=== PATIENT | male | born 1945 | race Caucasian/White ===

== ENCOUNTER 2017-06-27 16:49 | Emergency (ER) | payer MEDICARE, OTHER ==
[~2017-06-27] VITALS: Ht 188 cm; Wt 72.6 kg
[~2017-06-27 16:49] MED LIST: ACET325 PO; AMOX875 PO; ASPI81CH PO; COPAXONE40 MG/1 ML SC; DIAZ5 PO; SACC250C PO; SENN187 PO; SIMV10 PO; TAMS.4ER PO
[2017-06-27] MEDS ORDERED: OCREVUS300 MG/10 IV (17:02)
[2017-06-27] MEDS ORDERED: Guaifenesin-Co118 ML PO (19:24)
[2017-06-27 19:25] LABS: Calcium, Ionized (POC) 1.06 mmol/L (1.10-1.46); Chloride (POC) 98 mmol/L (98-108); Creatinine (POC) 0.7 mg/dL (0.8-1.3); Glucose (ISTAT POC) 110 mg/dL (70-99); Hemoglobin (POC) 13.6 g/dL (13.5-17.5); Potassium (POC) 3.8 mmol/L (3.5-5.5); Sodium (POC) 140 mmol/L (135-148); Total CO2 (POC) 27 mmol/L (21-32)
== END 2017-06-27 20:14 | disposition home or self-care (01) ==
LOC: ER 16:49
PROVIDERS: Emergency Medicine
DX: J20.9 Acute bronchitis, unspecified (principal); Z79.899 Other long term (current) drug therapy; Z79.82 Long term (current) use of aspirin; Z87.01 Personal history of pneumonia (recurrent)
CPT/HCPCS: 36415; 71046; 80047; 85014; 96360; 96361; 99283; J7030

== ENCOUNTER 2018-07-27 12:46 | Observation (INO) | payer MEDICARE, OTHER ==
[~2018-07-27] VITALS: Ht 188 cm; Wt 66.4 kg
[~2018-07-27 12:46] MED LIST changes: +Guaifenesin-Co118 ML PO; +OCREVUS300 MG/10 IV
[2018-07-27 13:33] LABS: BASOPHILS ABSOLUTE AUTO 0.04 K/mm3 (0.00-0.23); BASOPHILS PERCENT AUTO 0 % (0-2); EOSINOPHILS ABSOLUTE AUTO 0.01 K/mm3 (0.00-0.68); EOSINOPHILS PERCENT AUTO 0 % (0-6); Hematocrit 44.1 % (37.0-53.0); Hemoglobin 14.6 g/dL (13.5-17.5); IMMATURE GRAN ABSOLUTE AUTO 0.04 K/mm3 (0.00-0.10); IMMATURE GRAN PERCENT AUTO 0 % (0-1); LYMPHOCYTES ABSOLUTE AUTO 0.48 K/mm3 (0.84-5.20); LYMPHOCYTES PERCENT AUTO 4 % (21-46); MONOCYTES ABSOLUTE AUTO 0.54 K/mm3 (0.16-1.47); MONOCYTES PERCENT AUTO 4 % (4-13); Mean Corpuscular HGB 30.6 pg (26.0-34.0); Mean Corpuscular HGB Conc 33.1 g/dL (31.5-36.5); Mean Corpuscular Volume 93 fL (80-100); Mean Platelet Volume 10.5 fL (9.1-12.4); NEUTROPHILS ABSOLUTE AUTO 11.57 K/mm3 (1.96-9.15); NEUTROPHILS PERCENT AUTO 91 % (41-73); Platelet Count 234 K/mm3 (150-400); RDW Coefficient Variation 12.5 % (11.7-14.2); RDW Standard Deviation 42.5 fL (35.1-46.3); Red Blood Cell Count 4.77 M/mm3 (4.30-5.90); White Blood Cell Count 12.68 K/mm3 (4.00-11.30)
[2018-07-27 13:47] LABS: Alanine Aminotransfer (ALT/SGP 25 U/L (12-78); Albumin, Blood 3.5 g/dL (3.4-5.0); Albumin/Globulin Ratio 1.1 (0.8-1.8); Alk Phos 82 U/L (50-136); Anion Gap 5 mmol/L (6-16); Aspartate Aminotrans (AST/SGOT 27 U/L (12-37); Bilirubin, Total 0.9 mg/dL (0.1-1.0); Blood Urea Nitrogen 20 mg/dL (8-24); Bun/Creatinine Ratio 28.5 (12.0-20.0); CO2, Blood 29 mmol/L (21-32); Calcium, Blood 8.5 mg/dL (8.5-10.1); Chloride, Blood 107 mmol/L (98-108); Globulin, Blood 3.2 g/dL (2.2-4.0); Glomerular Filtration Rate >60 (60-); Glucose, Blood 124 mg/dL (70-99); Potassium, Blood 4.5 mmol/L (3.5-5.5); Sodium, Blood 141 mmol/L (136-145); Total Protein, Blood 6.7 g/dL (6.4-8.2)
[2018-07-27] MEDS ORDERED: COPAXONE40 MG/1 ML SC (15:58)
[2018-07-27] MEDS ORDERED: PROBIOTIC1 EAC6 PO (16:09)
[2018-07-27] MEDS ORDERED: HYFIBER WI12 GM/30 M PO (16:11)
--- NOTE | 2018-07-27 16:56 | NUR ---
ADMIT NOTE- PT ADMITTED THROUGH THE ED, PT ARRIVED ON MEDICAL UNIT WEARING THREE DEPENDS. RIGHT INNER HEEL HAS A CALLUSSED SPOT, PT STATES IT IS D/T THE WAY HIS FOOT LAYS NORMALLY. MILD BLANCHABLE REDNESS NOTED ON THE COCCYX AND REDNESS IN RIGHT INNER THIGH LIKELY R/T THREE PAIRS OF DEPENDS. PT CHANGED AND GIVEN A BED BATH UPON ARRIVAL, URINE WAS DARK BROWN AND VERY ODOROUS, PT MAY NEED A UA. WILL SPEAK WITH DR LAGUNA ABOUT IT.
--- NOTE | 2018-07-27 17:47 | NUR ---
ATTEMPTED TO CALL [facility] TO REQUEST A LIST OF ACTIVE MEDICATIONS NO ANSWER.
--- NOTE | 2018-07-27 19:23 | NUR ---
SHIFT SUMMARY- DR LAGUNA CAME TO SEE THE PT USED EMR TO DETERMINE PT HOME MEDS PT STATED AFTER MED REC WAS COMPLETED HE DOES NOT TAKE LISINOPRIL. ADMIT COMPLETE
[2018-07-27 22:19] LABS: Source, Urine Clean Catch
[2018-07-27 22:22] LABS: Bilirubin, Urine Neg (Neg); Blood, Urine 1+ (Neg); Glucose Qualitative, Urine Neg (Neg); Ketones, Urine 3+ (Neg); Leukocyte Esterase, Urine 2+ (Neg); Nitrite, Urine Pos (Neg); Protein, Urine 1+ (Neg); Specific Gravity, Urine 1.015 (1.003-1.022); Urobilinogen, Urine 1+ (Normal)
[2018-07-27 22:30] LABS: Appearance, Urine Cloudy (Clear); Color, Urine Yellow (P-Yellow)
[2018-07-27 22:31] LABS: Bacteria Many /hpf; Red Blood Cells, Urine 0-2 /hpf (0-2); Squamous Epithelial Cells Few /hpf (Few); White Blood Cells, Urine 25-50 /hpf (0-5)
[2018-07-28 04:45] LABS: BASOPHILS ABSOLUTE AUTO 0.02 K/mm3 (0.00-0.23); BASOPHILS PERCENT AUTO 0 % (0-2); EOSINOPHILS PERCENT AUTO 0 % (0-6); Hemoglobin 13.1 g/dL (13.5-17.5); IMMATURE GRAN ABSOLUTE AUTO 0.04 K/mm3 (0.00-0.10); IMMATURE GRAN PERCENT AUTO 1 % (0-1); LYMPHOCYTES ABSOLUTE AUTO 0.34 K/mm3 (0.84-5.20); LYMPHOCYTES PERCENT AUTO 4 % (21-46); MONOCYTES ABSOLUTE AUTO 0.05 K/mm3 (0.16-1.47); MONOCYTES PERCENT AUTO 1 % (4-13); Mean Corpuscular HGB 30.3 pg (26.0-34.0); Mean Corpuscular HGB Conc 32.8 g/dL (31.5-36.5); Mean Corpuscular Volume 92 fL (80-100); Mean Platelet Volume 10.1 fL (9.1-12.4); NEUTROPHILS ABSOLUTE AUTO 8.32 K/mm3 (1.96-9.15); NEUTROPHILS PERCENT AUTO 95 % (41-73); Platelet Count 226 K/mm3 (150-400); RDW Coefficient Variation 12.2 % (11.7-14.2); RDW Standard Deviation 41.9 fL (35.1-46.3); Red Blood Cell Count 4.33 M/mm3 (4.30-5.90); White Blood Cell Count 8.77 K/mm3 (4.00-11.30)
--- NOTE | 2018-07-28 07:01 | NUR ---
SHIFT SUMMARY PT A/O NO C/O PAIN. INCONT OF URINE. C/O COUGH AND GOT ORDER FOR ROBITUSSIN FROM DR TORRES. HE WAS ABLE TO SLEEP T/O NIGHT. CALL LIGHT IN REACH.
--- NOTE | 2018-07-28 17:34 | NUR ---
ASSUMED CARE OF PT- RECIEVED REPORT FROM NIGHT RN MORE, ASSUMED CARE OF PT WITH RN EBENEZER ISIDRO. PT AGREEABLE TO HER CARE.
--- NOTE | 2018-07-28 19:13 | NUR ---
SHIFT SUMMARY NO ACUTE CHANGES IN PATIENT THIS SHIFT. PATIENT IS EXPECTED TO BE DISHARGED HOME TOMORROW. BED LEFT IN LOCKED AND LOW POSITION AND CALL LIGHT WITHIN REACH.
--- NOTE | 2018-07-29 06:37 | NUR ---
SHIFT SUMMARY PT A/O. INCONT OF URINE. HE WAS ABLE TO SLEEP T/O NIGHT. NO C/O PAIN. CALL LIGHT IN REACH.
--- NOTE | 2018-07-29 13:33 | NUR ---
Per admit trigger, I met with Mr. Brambila to offer prayer and spiritual support. He was very open to companionship and prayer. He spoke at length about his love for his and his concern for her health. He admits it may be time for them to consider selling their home as it has become a burden to manage. He became tearful at times, but expressed a job gopal. I provided theraputic listening, gentle spiritual direction, and prayer to good effect. I will remain available.
[2018-07-29] MEDS ORDERED: AZIT250 PO (15:28)
--- NOTE | 2018-07-29 15:53 | NUR ---
D/C INSTRUCTIONS PROVIDED AND EXPLAINED TO PT. IV REMOVED. PT D/C VIA STRETCHER WITH [facility] AT [id number].
== END 2018-07-29 15:55 | disposition home health service (06) ==
LOC: ER 12:46 → MEDS 12:47
PROVIDERS: Emergency Medicine; ADMIT Internal Medicine
DX: G35 Multiple sclerosis (principal); N39.0 Urinary tract infection, site not specified; D72.829 Elevated white blood cell count, unspecified; G82.20 Paraplegia, unspecified; J45.909 Unspecified asthma, uncomplicated; F41.9 Anxiety disorder, unspecified; N40.0 Benign prostatic hyperplasia without lower urinary tract symptoms; E78.5 Hyperlipidemia, unspecified; Z79.899 Other long term (current) drug therapy
CPT/HCPCS: 36415; 71046; 80053; 81001; 85025; 87086; 96360; 96361; 96365; 96366; 96372; 96375; 96376; 97161; 97165; 97530; 99284-25; A9270-GY; G0378; J0696; J1650; J2930; J7030; J7050

== ENCOUNTER 2018-08-04 14:01 | Inpatient (IN) | payer MEDICARE, OTHER ==
[~2018-08-04] VITALS: Ht 188 cm; Wt 70.3 kg
[~2018-08-04 14:01] MED LIST changes: +AZIT250 PO; +HYFIBER WI12 GM/30 M PO; +PROBIOTIC1 EAC6 PO
[2018-08-04 14:45] LABS: BASOPHILS ABSOLUTE AUTO 0.03 K/mm3 (0.00-0.23); BASOPHILS PERCENT AUTO 0 % (0-2); EOSINOPHILS ABSOLUTE AUTO 0.04 K/mm3 (0.00-0.68); EOSINOPHILS PERCENT AUTO 0 % (0-6); Hematocrit 45.3 % (37.0-53.0); Hemoglobin 14.6 g/dL (13.5-17.5); IMMATURE GRAN ABSOLUTE AUTO 0.17 K/mm3 (0.00-0.10); IMMATURE GRAN PERCENT AUTO 1 % (0-1); LYMPHOCYTES PERCENT AUTO 5 % (21-46); MONOCYTES ABSOLUTE AUTO 1.05 K/mm3 (0.16-1.47); MONOCYTES PERCENT AUTO 8 % (4-13); Mean Corpuscular HGB 29.9 pg (26.0-34.0); Mean Corpuscular HGB Conc 32.2 g/dL (31.5-36.5); Mean Corpuscular Volume 93 fL (80-100); Mean Platelet Volume 9.8 fL (9.1-12.4); NEUTROPHILS ABSOLUTE AUTO 10.69 K/mm3 (1.96-9.15); NEUTROPHILS PERCENT AUTO 85 % (41-73); Platelet Count 254 K/mm3 (150-400); RDW Coefficient Variation 12.7 % (11.7-14.2); RDW Standard Deviation 43.4 fL (35.1-46.3); Red Blood Cell Count 4.88 M/mm3 (4.30-5.90); White Blood Cell Count 12.58 K/mm3 (4.00-11.30)
[2018-08-04 15:06] LABS: Alanine Aminotransfer (ALT/SGP 24 U/L (12-78); Albumin, Blood 3.2 g/dL (3.4-5.0); Albumin/Globulin Ratio 0.9 (0.8-1.8); Alk Phos 77 U/L (50-136); Anion Gap 6 mmol/L (6-16); Aspartate Aminotrans (AST/SGOT 16 U/L (12-37); Bilirubin, Total 0.8 mg/dL (0.1-1.0); Blood Urea Nitrogen 16 mg/dL (8-24); Bun/Creatinine Ratio 21.1 (12.0-20.0); CO2, Blood 30 mmol/L (21-32); Calcium, Blood 8.6 mg/dL (8.5-10.1); Chloride, Blood 101 mmol/L (98-108); Creatinine, Blood 0.76 mg/dL (0.60-1.20); Globulin, Blood 3.5 g/dL (2.2-4.0); Glomerular Filtration Rate >60 (60-); Glucose, Blood 91 mg/dL (70-99); Potassium, Blood 4.4 mmol/L (3.5-5.5); Sodium, Blood 137 mmol/L (136-145); Total Protein, Blood 6.7 g/dL (6.4-8.2); Troponin I <0.015 ng/mL (0.000-0.040)
--- NOTE | 2018-08-04 18:33 | NUR ---
ADMISSION NOTE PT ARRIVED TO MEDICAL FLOOR VIA BED. PTS ATTENDS AND BED WERE SOAKED WITH FOUL URINE. PT CLEANED UP AND VS MEASURED. PT TEMP IS 100.3 AT THIS TIME. PT ORIENTED TO ROOM AND ASSESSMENT COMPLETED. PT AXO, PLEASANT AND COOPERATIVE WITH CARE. DINNER TRAY ORDER, PT STATES THAT HE DOES BEST WITH MECH SOFT DIET. BED IN LOW POSITION, CALL LIGHT WITHIN REACH. PT HAS A BLANCHABLE REDDEND AREA ON COCCYX WITH A SMALL WOUND INSIDE INSIDE THE GLUTEAL CLEFT.
[2018-08-04 22:01] LABS: Adenovirus Not Detected (NOT DETECT); Bordetella pertussis Not Detected (NOT DETECT); Chlamydophila pneumoniae Not Detected (NOT DETECT); Coronavirus 229E Not Detected (NOT DETECT); Coronavirus HKU1 Not Detected (NOT DETECT); Coronavirus NL63 Not Detected (NOT DETECT); Coronavirus OC43 Not Detected (NOT DETECT); Human Metapneumovirus Not Detected (NOT DETECT); Human Rhinovirus/Enterovirus Detected (NOT DETECT); Influenza A Not Detected (NOT DETECT); Influenza A/2009-H1 Not Detected (NOT DETECT); Influenza A/H1 Not Detected (NOT DETECT); Influenza A/H3 Not Detected (NOT DETECT); Influenza B Not Detected (NOT DETECT); Mycoplasma pneumoniae Not Detected (NOT DETECT); Parainfluenza Virus 1 Not Detected (NOT DETECT); Parainfluenza Virus 2 Not Detected (NOT DETECT); Parainfluenza Virus 3 Not Detected (NOT DETECT); Parainfluenza Virus 4 Not Detected (NOT DETECT); Respiratory Syncytial Virus Not Detected (NOT DETECT)
[2018-08-05 00:15] LABS: Source, Urine Clean Catch
[2018-08-05 00:20] LABS: Bilirubin, Urine Neg (Neg); Blood, Urine Neg (Neg); Glucose Qualitative, Urine 4+ (Neg); Ketones, Urine 3+ (Neg); Leukocyte Esterase, Urine Neg (Neg); Nitrite, Urine Neg (Neg); Protein, Urine 1+ (Neg); Specific Gravity, Urine 1.015 (1.003-1.022); Urobilinogen, Urine NORM (Normal)
[2018-08-05 00:27] LABS: Appearance, Urine Clear (Clear); Color, Urine Yellow (P-Yellow)
--- NOTE | 2018-08-05 06:07 | NUR ---
SHIFT SUMMARY PATIENT IS ALERT AND ORIENTED. USES CALL LIGHT APPROPRIATELY. PATIENT REMAINED IN BED DURING SHIFT. WAS INCONTINENT THROUGHOUT THE NIGHT. CONDOM CATH WAS USED TO OBTAIN URINE SAMPLE. PATIENT TURNED THROUGHOUT THE NIGHT. MEPLIX DRESSING C/D/I ON COCCYX. PATIENT ON ROOM AIR. HAS A VERY MOIST WEAK COUGH. PATIENT STATES HE IS WORKING ON COUGHING DEEPER TO TRY AND COUGH IT UP. LEFT LEG IS MORE SWOLLEN COMPARED TO RIGHT. VITALS STABLE. NO ACUTE CHANGES DURING SHIFT. PT SLEPT WELL
--- NOTE | 2018-08-05 12:08 | NUR ---
Patient is lying in bed and alert. Patient openly shares about his current health issues, about his [employer] background ([employer]), and about his family ( Kajal, and 4 daughters and their families). Patient expresses the need for direction concerning "God's will" for his and how to manage his M.S. and her Parkinson's I listen empathically, provide companionship, pastoral drug abuse counselor and prayer. Patient responds well and shows signs of an elevated mood.
--- NOTE | 2018-08-05 19:07 | NUR ---
SHIFT SUMMARY: NO ACUTE CHANGES TO REPORT THIS SHIFT. PT A&O; CALM AND COOPERATIVE WITH CARE. NO C/O PAIN OR NAUSEA THIS SHIFT. PT HX MS; WHEELCHAIR BOUND AT BASELINE; PT UP c 2-MAX ASSIST; PT UP TO CHAIR T/O SHIFT. SWALLOWING DIFFICULTIES; PO MEDS IN APPLESAUCE. SOLU-MEDROL & RESPIRATORY TREATMENTS CONTINUING. REPORT GIVEN TO ONCOMING RN.
--- NOTE | 2018-08-06 05:58 | NUR ---
SHIFT SUMMARY PATIENT IS ALERT AND ORIENTED. REMAINED IN BED THROUGHOUT THE NIGHT. PATIENT SLEPT WELL THROUGHOUT THE NIGHT. NO NEW CHANGES. VITALS STABLE. PT USE CALL LIGHT APPROPRIATELY.
--- NOTE | 2018-08-06 17:38 | NUR ---
SHIFT SUMMARY NO ACUTE CHANGES IN PT CONDITION THIS SHIFT. PATIENT HAS WORKED WITH OT TODAY AND HAS BEEN UP IN CHAIR AND THEN RETURNED TO BED. PT IS Q2 TURNS. CURRENTLY NO DISCHARGE PLANS. BED WAS LEFT IN LOW AND LOCKED POSITION AND CALL LIGHT WITHIN REACH. WILL CONTINUE TO MONITOR.
--- NOTE | 2018-08-07 05:49 | NUR ---
SHIFT SUMMARY PT A/O. INCONT OF URINE AND Q2HR TURNS REPOSITIONS. LEGS ELEVATED ON PILLOWS TO KEEP HEELS OFF BED. C/O OCCASIONAL WEAK NONPRODUCTIVE COUGH AND MEDICATED PER EMAR. NO S/S OF RESPIRATORY DISTRESS. HE IS ON ROOM AIR. HE WAS ABLE TO SLEEP T/O NIGHT. CALL LIGHT IN REACH.
--- NOTE | 2018-08-07 15:51 | NUR ---
SHIFT SUMMARY PATIENT WORKED WITH THERAPIES TODAY. AWAITING SNF PLACEMENT. BEDBATH GIVEN. SKIN C/D/I MEPILEX ON COCCYX FOR REDNESS.
--- NOTE | 2018-08-08 05:32 | NUR ---
SHIFT SUMMARY PATIENT IS ALERT AND ORIENTED. PATIENT REQUESTED TO HAVE COUGH MEDICINE AND ASKED IF HE COULD HAVE A NASAL SPRAY. RECIEVED NEW ORDER FOR NASAL DECONGESTION SPRAY AND FLUTTER VALVE. PATIENT HAS BEEN ASLEEP AND NOT RECIEVED A DOSE OF NASAL SPRAY. PATIENT IS INCONTINENT AND HAS BEEN CHANGED/REPOSITIONED THROUGHOUT THE NIGHT. MEPLIX IS C/D/I ON COCCYX. VITALS STABLE. NO NEW CHANGES THROUGHOUT THE NIGHT. PLAN IS FOR PT TO DISCHARGE TO PSYCHIATRIC TODAY. RESPIRATIONS EQUAL AND UNLABORED ON ROOM AIR
[2018-08-08 13:35] LABS: Adenovirus Not Detected (NOT DETECT); Bordetella pertussis Not Detected (NOT DETECT); Chlamydophila pneumoniae Not Detected (NOT DETECT); Coronavirus 229E Not Detected (NOT DETECT); Coronavirus HKU1 Not Detected (NOT DETECT); Coronavirus NL63 Not Detected (NOT DETECT); Coronavirus OC43 Not Detected (NOT DETECT); Human Metapneumovirus Not Detected (NOT DETECT); Human Rhinovirus/Enterovirus Detected (NOT DETECT); Influenza A Not Detected (NOT DETECT); Influenza A/2009-H1 Not Detected (NOT DETECT); Influenza A/H1 Not Detected (NOT DETECT); Influenza A/H3 Not Detected (NOT DETECT); Influenza B Not Detected (NOT DETECT); Mycoplasma pneumoniae Not Detected (NOT DETECT); Parainfluenza Virus 1 Not Detected (NOT DETECT); Parainfluenza Virus 2 Not Detected (NOT DETECT); Parainfluenza Virus 3 Not Detected (NOT DETECT); Parainfluenza Virus 4 Not Detected (NOT DETECT); Respiratory Syncytial Virus Not Detected (NOT DETECT)
--- NOTE | 2018-08-08 18:08 | NUR ---
[facility] initial visit: Mr. Brambila has a gentle demeanor and gracious attitude. He is soft-spoken and articulate. He has a srtong marriage of 50+ years and adult children who are loving and supportive. Hhis primary concern is about his . She has advancing Parkinsons. It has become difficult for them to care for one another as they are both requiring more ADL assistance. He is ready to move to assisted living. She is not. He expressed deep love for his and children and was grateful for spiritual support/prayer. We did not discuss his wishes/code status/wishes. Strategic Account Manager services will remain available.
--- NOTE | 2018-08-08 18:22 | NUR ---
SUMMARY PT SITTING UP IN BED EATING DINNER, PT HAS BEEN UP IN THE CHAIR FOR MOST OF THE DAY, PT IS PLEASANT AND COOPERATIVE WITH CARE, IS A 2PERSON TRANSFER, PT ABLE TO FEED HIMSELF AND TAKE PILLS WHOLE WITH WATER, PLAN IS TO DC TO SNF IN THE NEXT DAY OR 2, WILL CONT TO MONITOR
--- NOTE | 2018-08-09 05:56 | NUR ---
SHIFT SUMMARY PATIENT IS ALERT AND ORIENTED. PATIENT REQUESTED COUGH MEDICINE AND NASAL SPRAY BEFORE BED. PATIENT SLEPT WELL THROUGHOUT THE NIGHT. PATIENT RECIEVED HOME MEDICATION COPAXONE FOR MS ORDERED. NO ACUTE CHANGES THROUGHOUT THE NIGHT. VITALS STABLE
--- NOTE | 2018-08-09 15:24 | NUR ---
PICC ORDER SPOKE WITH DR MILES ABOUT PICC ORDER. PT NEEDS 1 WEEK OUTPT ABX- OKAY TO PLACE POWERGLIDE
--- NOTE | 2018-08-09 16:55 | NUR ---
SHIFT SUMMARY THE PATIENT PRESENTED THIS MORNING A&O X4, WITH VITALS WNL AND DIMINISHED LUNG SOUNDS. THE PATIENT HAS BEEN RESTING IN BED MOST OF THE SHIFT AND REQUESTED TO GET UP TO HIS WHEEL CHAIR AROUND 1445. THE PATIENT HAD A POWER GLIDE PLACED AND THEN WAS ABOUT TO GET UP TO HIS CHAIR. THE PATIENT IS WAITING IN HIS ROOM FOR HIS FAMILY TO ARRIVE. WILL CONTINUE TO MONITOR.
[2018-08-10 05:32] LABS: BASOPHILS ABSOLUTE AUTO 0.09 K/mm3 (0.00-0.23); BASOPHILS PERCENT AUTO 1 % (0-2); EOSINOPHILS ABSOLUTE AUTO 0.09 K/mm3 (0.00-0.68); EOSINOPHILS PERCENT AUTO 1 % (0-6); Hematocrit 39.1 % (37.0-53.0); Hemoglobin 12.7 g/dL (13.5-17.5); IMMATURE GRAN ABSOLUTE AUTO 0.65 K/mm3 (0.00-0.10); IMMATURE GRAN PERCENT AUTO 5 % (0-1); LYMPHOCYTES ABSOLUTE AUTO 0.82 K/mm3 (0.84-5.20); LYMPHOCYTES PERCENT AUTO 6 % (21-46); MONOCYTES ABSOLUTE AUTO 0.81 K/mm3 (0.16-1.47); MONOCYTES PERCENT AUTO 6 % (4-13); Mean Corpuscular HGB 29.9 pg (26.0-34.0); Mean Corpuscular HGB Conc 32.5 g/dL (31.5-36.5); Mean Corpuscular Volume 92 fL (80-100); NEUTROPHILS ABSOLUTE AUTO 10.58 K/mm3 (1.96-9.15); NEUTROPHILS PERCENT AUTO 81 % (41-73); Platelet Count 251 K/mm3 (150-400); RDW Coefficient Variation 13.1 % (11.7-14.2); RDW Standard Deviation 43.9 fL (35.1-46.3); Red Blood Cell Count 4.25 M/mm3 (4.30-5.90); White Blood Cell Count 13.04 K/mm3 (4.00-11.30)
[2018-08-10 05:54] LABS: Magnesium, Blood 2.5 mg/dL (1.6-2.4)
[2018-08-10 05:55] LABS: Alanine Aminotransfer (ALT/SGP 59 U/L (12-78); Albumin, Blood 2.3 g/dL (3.4-5.0); Albumin/Globulin Ratio 0.8 (0.8-1.8); Alk Phos 75 U/L (50-136); Anion Gap 5 mmol/L (6-16); Aspartate Aminotrans (AST/SGOT 30 U/L (12-37); Bilirubin, Total 0.5 mg/dL (0.1-1.0); Blood Urea Nitrogen 20 mg/dL (8-24); Bun/Creatinine Ratio 21.6 (12.0-20.0); CO2, Blood 34 mmol/L (21-32); Calcium, Blood 8.2 mg/dL (8.5-10.1); Chloride, Blood 102 mmol/L (98-108); Creatinine, Blood 0.93 mg/dL (0.60-1.20); Globulin, Blood 2.9 g/dL (2.2-4.0); Glomerular Filtration Rate >60 (60-); Glucose, Blood 89 mg/dL (70-99); Phosphorus, Blood 4.3 mg/dL (2.5-4.9); Potassium, Blood 4.2 mmol/L (3.5-5.5); Sodium, Blood 141 mmol/L (136-145); Total Protein, Blood 5.2 g/dL (6.4-8.2)
--- NOTE | 2018-08-10 06:00 | NUR ---
73 year old Male with MS admitted with resp distress and he continues on IV antibiotics to treat resp infection. He is wc bound baseline unable to ambulate x many years. Up with 2 extensive assist to bedside chair. Able to feed self, tolerated mech soft diet with ground meat. PT has pressure area onf nonblanching skin sacral area. Photo in chart. Pt incont of large amts of urine, wears attends. Unable to reposition self in bed. On room air lung sounds diminished sounds bilat. Had powerglide placed yesterday to continue IV abx at SNF. Jw blood from powerglide this AM, IV positional. Denies pain or acute distress, needs crushable meds crushed and given in chocolate pudding. slow difficult swallow. Has and DTR who are supportive and support SNF on DC.
[2018-08-10] MEDS ORDERED: ALBU2.5V5 NEB (13:04)
[2018-08-10] MEDS ORDERED: ACET325 PO (13:04)
[2018-08-10] MEDS ORDERED: BENZ100A PO (13:05)
[2018-08-10] MEDS ORDERED: ROBITUSSIN COU237 ML PO (13:11)
[2018-08-10] MEDS ORDERED: ENOX40I SC (13:12)
[2018-08-10] MEDS ORDERED: Florastor250 MG PO (13:12)
[2018-08-10] MEDS ORDERED: PIPERACIL-TAZO4.5 G1 IV (13:14)
[2018-08-10] MEDS ORDERED: ALBU3IS INH (13:15)
--- NOTE | 2018-08-10 14:15 | NUR ---
REPORT CALLED TO RN AT [facility]. PT. DISCHARGED TO [facility] VIA [facility]. FAMILY NITIFIED OF DISCHARGE.
== END 2018-08-10 14:28 | DRG 58 ==
LOC: ER 14:01 → MEDS 16:13
PROVIDERS: Emergency Medicine; Hospitalist; Internal Medicine; ADMIT Internal Medicine Gastroenterology
PROC: 02HV33Z Insertion of Infusion Device into Superior Vena Cava, Percutaneous Approach (ICD-10-PCS; principal; 2018-08-09)
DX: G35 Multiple sclerosis (principal); J18.9 Pneumonia, unspecified organism; A41.9 Sepsis, unspecified organism; E78.5 Hyperlipidemia, unspecified; L89.151 Pressure ulcer of sacral region, stage 1; K59.00 Constipation, unspecified; B97.89 Other viral agents as the cause of diseases classified elsewhere; Z99.3 Dependence on wheelchair
CPT/HCPCS: 36415; 71045; 71046; 80053; 83605; 83735; 84100; 84145; 84484; 85025; 87486; 87581; 87633; 87798; 93005; 93010; 94640; 94667; 94760; 96365; 96366; 96375; 97110; 97161; 97165; 97530; 99285-25; A9270-GY; J0696; J1650; J2543; J2930; J7030; J7050

== ENCOUNTER 2018-12-22 16:10 | Emergency (ER) | payer MEDICARE, OTHER ==
[~2018-12-22] VITALS: Ht 188 cm; Wt 63.5 kg
[~2018-12-22 16:10] MED LIST changes: +ALBU2.5V5 NEB; +ALBU3IS INH; +BENZ100A PO; +ENOX40I SC; +Florastor250 MG PO; +PIPERACIL-TAZO4.5 G1 IV; +ROBITUSSIN COU237 ML PO
[2018-12-22] MEDS ORDERED: XARELTO10 MG PO (16:17)
[2018-12-22 17:00] LABS: Influenza A Negative (NEGATIVE); Influenza B Negative (NEGATIVE)
[2018-12-22] MEDS ORDERED: Zithromax250 MG PO (17:39)
[2018-12-22] MEDS ORDERED: Zithromax200 MG/5 M PO (17:45)
== END 2018-12-22 20:22 | disposition home or self-care (01) ==
LOC: ER 16:10
PROVIDERS: Physician Assistant
DX: R05 Cough (principal); R09.3 Abnormal sputum; Z87.01 Personal history of pneumonia (recurrent); Z87.440 Personal history of urinary (tract) infections; Z79.899 Other long term (current) drug therapy; Z79.01 Long term (current) use of anticoagulants
CPT/HCPCS: 71046; 87804; 99284-25

== ENCOUNTER → 2018-12-31 | Outpatient (CLI) | payer MEDICARE, OTHER ==
[~2018-12-31] MED LIST changes: +XARELTO10 MG PO; +Zithromax200 MG/5 M PO; +Zithromax250 MG PO
== END | disposition home or self-care (01) ==
LOC: LAB SHORT 08:21 → PLD 08:21
DX: D04.4 Carcinoma in situ of skin of scalp and neck (principal)
CPT/HCPCS: 88305

== ENCOUNTER 2019-02-07 09:29 | Emergency (ER) | payer MEDICARE, OTHER ==
[~2019-02-07] VITALS: Ht 172.7 cm; Wt 68.0 kg
[2019-02-07] MEDS ORDERED: AMAN100 (10:07)
[2019-02-07] MEDS ORDERED: ENOX40I (10:08)
[2019-02-07] MEDS ORDERED: Florastor250 MG (10:08)
[2019-02-07] MEDS ORDERED: COPAXONE40 MG/1 ML (10:08)
[2019-02-07] MEDS ORDERED: Zocor20 MG (10:09)
[2019-02-07] MEDS ORDERED: XARELTO15 MG PO (10:09)
[2019-02-07] MEDS ORDERED: SENN187 (10:09)
[2019-02-07] MEDS ORDERED: ALBU2.5V5 (10:10)
[2019-02-07] MEDS ORDERED: Cough Syru100 MG/5 M (10:11)
[2019-02-07] MEDS ORDERED: Anti-Diarrheal2 MG (10:11)
[2019-02-07] MEDS ORDERED: MILK OF MA400 MG/5 M (10:12)
[2019-02-07 10:23] LABS: BASOPHILS ABSOLUTE AUTO 0.02 K/mm3 (0.00-0.23); BASOPHILS PERCENT AUTO 0 % (0-2); EOSINOPHILS ABSOLUTE AUTO 0.01 K/mm3 (0.00-0.68); EOSINOPHILS PERCENT AUTO 0 % (0-6); Hematocrit 46.3 % (37.0-53.0); Hemoglobin 14.9 g/dL (13.5-17.5); IMMATURE GRAN ABSOLUTE AUTO 0.04 K/mm3 (0.00-0.10); IMMATURE GRAN PERCENT AUTO 0 % (0-1); LYMPHOCYTES ABSOLUTE AUTO 0.48 K/mm3 (0.84-5.20); LYMPHOCYTES PERCENT AUTO 5 % (21-46); MONOCYTES ABSOLUTE AUTO 0.55 K/mm3 (0.16-1.47); MONOCYTES PERCENT AUTO 6 % (4-13); Mean Corpuscular HGB Conc 32.2 g/dL (31.5-36.5); Mean Corpuscular Volume 93 fL (80-100); Mean Platelet Volume 10.7 fL (9.1-12.4); NEUTROPHILS PERCENT AUTO 88 % (41-73); Platelet Count 196 K/mm3 (150-400); RDW Coefficient Variation 13.4 % (11.7-14.2); RDW Standard Deviation 46.3 fL (35.1-46.3); Red Blood Cell Count 4.96 M/mm3 (4.30-5.90)
[2019-02-07 10:33] LABS: Alanine Aminotransfer (ALT/SGP 21 U/L (12-78); Albumin, Blood 3.4 g/dL (3.4-5.0); Albumin/Globulin Ratio 1.1 (0.8-1.8); Alk Phos 93 U/L (50-136); Anion Gap 6 mmol/L (6-16); Aspartate Aminotrans (AST/SGOT 18 U/L (12-37); Bilirubin, Total 0.8 mg/dL (0.1-1.0); Blood Urea Nitrogen 19 mg/dL (8-24); Bun/Creatinine Ratio 29.5 (12.0-20.0); CO2, Blood 27 mmol/L (21-32); Calcium, Blood 8.7 mg/dL (8.5-10.1); Chloride, Blood 108 mmol/L (98-108); Creatinine, Blood 0.64 mg/dL (0.60-1.20); Globulin, Blood 3.1 g/dL (2.2-4.0); Glomerular Filtration Rate >60 (60-); Glucose, Blood 97 mg/dL (70-99); Potassium, Blood 3.9 mmol/L (3.5-5.5); Sodium, Blood 141 mmol/L (136-145); Total Protein, Blood 6.5 g/dL (6.4-8.2)
[2019-02-07] MEDS ORDERED: Zithromax200 MG/5 M PO (11:11)
--- NOTE | 2019-02-07 11:56 | NUR ---
Patient requested a spiritual care visit which I respond to. Patient tells me that his is transitioning and is expected to pass within the hour and he is in the ER. I conduct a life review, explore patient's belief system and provide grief support, pastoral youth counselor and prayer. Patient responds well and shows signs of restored gopal.
[2019-02-08] MEDS ORDERED: BENZ100A PO (18:15)
== END 2019-02-07 13:06 | disposition home or self-care (01) ==
LOC: ER 09:29
PROVIDERS: Internal Medicine
DX: J18.9 Pneumonia, unspecified organism (principal); R53.1 Weakness; E78.5 Hyperlipidemia, unspecified; Z79.899 Other long term (current) drug therapy
CPT/HCPCS: 36415; 71046; 80053; 83605; 84145; 85025; 87040; 96365; 96367; 99285-25; J0456; J0696; J7050

== ENCOUNTER 2019-02-08 15:44 | Emergency (ER) | payer MEDICARE, OTHER ==
[~2019-02-08] VITALS: Ht 188 cm; Wt 59.0 kg
[~2019-02-08 15:44] MED LIST changes: +ALBU2.5V5; +AMAN100; +Anti-Diarrheal2 MG; +COPAXONE40 MG/1 ML; +Cough Syru100 MG/5 M; +ENOX40I; +Florastor250 MG; +MILK OF MA400 MG/5 M; +SENN187; +XARELTO15 MG PO; +Zocor20 MG
[2019-02-08 17:05] LABS: BASOPHILS ABSOLUTE AUTO 0.02 K/mm3 (0.00-0.23); BASOPHILS PERCENT AUTO 0 % (0-2); EOSINOPHILS ABSOLUTE AUTO 0.01 K/mm3 (0.00-0.68); EOSINOPHILS PERCENT AUTO 0 % (0-6); Hematocrit 41.2 % (37.0-53.0); Hemoglobin 13.6 g/dL (13.5-17.5); IMMATURE GRAN ABSOLUTE AUTO 0.04 K/mm3 (0.00-0.10); IMMATURE GRAN PERCENT AUTO 0 % (0-1); LYMPHOCYTES ABSOLUTE AUTO 0.84 K/mm3 (0.84-5.20); LYMPHOCYTES PERCENT AUTO 8 % (21-46); MONOCYTES ABSOLUTE AUTO 1.06 K/mm3 (0.16-1.47); MONOCYTES PERCENT AUTO 10 % (4-13); Mean Corpuscular Volume 91 fL (80-100); Mean Platelet Volume 10.2 fL (9.1-12.4); NEUTROPHILS ABSOLUTE AUTO 8.85 K/mm3 (1.96-9.15); NEUTROPHILS PERCENT AUTO 82 % (41-73); Platelet Count 211 K/mm3 (150-400); RDW Coefficient Variation 13.3 % (11.7-14.2); RDW Standard Deviation 44.8 fL (35.1-46.3); Red Blood Cell Count 4.53 M/mm3 (4.30-5.90); White Blood Cell Count 10.82 K/mm3 (4.00-11.30)
[2019-02-08 17:27] LABS: Alanine Aminotransfer (ALT/SGP 17 U/L (12-78); Albumin/Globulin Ratio 0.9 (0.8-1.8); Alk Phos 80 U/L (50-136); Anion Gap 7 mmol/L (6-16); Aspartate Aminotrans (AST/SGOT 18 U/L (12-37); Bilirubin, Total 0.5 mg/dL (0.1-1.0); Blood Urea Nitrogen 21 mg/dL (8-24); Bun/Creatinine Ratio 34.5 (12.0-20.0); CO2, Blood 27 mmol/L (21-32); Calcium, Blood 8.4 mg/dL (8.5-10.1); Chloride, Blood 104 mmol/L (98-108); Creatinine, Blood 0.61 mg/dL (0.60-1.20); Globulin, Blood 3.3 g/dL (2.2-4.0); Glomerular Filtration Rate >60 (60-); Glucose, Blood 105 mg/dL (70-99); Potassium, Blood 3.7 mmol/L (3.5-5.5); Sodium, Blood 138 mmol/L (136-145); Total Protein, Blood 6.3 g/dL (6.4-8.2)
[2019-02-08] MEDS ORDERED: BENZ100A PO (18:15)
== END 2019-02-09 00:48 | disposition home or self-care (01) ==
LOC: ER 15:44
PROVIDERS: Physician Assistant
DX: J18.9 Pneumonia, unspecified organism (principal); G35 Multiple sclerosis; Z79.899 Other long term (current) drug therapy
CPT/HCPCS: 36415; 71046; 80053; 83605; 85025; 87040; 96365; 99284-25; J0696; J7030

== ENCOUNTER 2019-09-11 00:37 | Emergency (ER) | payer MEDICARE, OTHER ==
[~2019-09-11] VITALS: Ht 188 cm; Wt 70.3 kg
[2019-09-11] MEDS ORDERED: TUMS500 MG PO (00:48)
[2019-09-11] MEDS ORDERED: GLATIRAMER40 MG/1 ML SC (00:49)
[2019-09-11] MEDS ORDERED: SENNA LAXATIVE8.6 MG PO (00:49)
[2019-09-11] MEDS ORDERED: MULTI-VITAMIN1 EAC2 PO (00:49)
[2019-09-11] MEDS ORDERED: ZOCOR20 MG PO (00:50)
[2019-09-11] MEDS ORDERED: XARELTO10 MG PO (00:50)
[2019-09-11] MEDS ORDERED: Tylenol325 MG PO (00:51)
[2019-09-11] MEDS ORDERED: VALIUM5 MG PO (00:51)
[2019-09-11 01:09] LABS: Source, Urine Clean Catch
[2019-09-11 01:10] LABS: Appearance, Urine Cloudy (Clear); Bilirubin, Urine Neg (Neg); Blood, Urine 5+ (Neg); Color, Urine Yellow (P-Yellow); Glucose Qualitative, Urine Neg (Neg); Ketones, Urine Neg (Neg); Leukocyte Esterase, Urine 3+ (Neg); Nitrite, Urine Neg (Neg); Protein, Urine 2+ (Neg); Specific Gravity, Urine 1.025 (1.003-1.022); Urobilinogen, Urine NORM (Normal)
[2019-09-11 01:16] LABS: Bacteria Many /hpf; Red Blood Cells, Urine TNTC /hpf (0-2); Squamous Epithelial Cells Not Seen /hpf (Few); White Blood Cells, Urine 50-100 /hpf (0-5)
[2019-09-11 02:41] LABS: BASOPHILS ABSOLUTE AUTO 0.07 K/mm3 (0.00-0.23); BASOPHILS PERCENT AUTO 1 % (0-2); EOSINOPHILS ABSOLUTE AUTO 0.19 K/mm3 (0.00-0.68); EOSINOPHILS PERCENT AUTO 2 % (0-6); Hematocrit 45.7 % (37.0-53.0); Hemoglobin 14.8 g/dL (13.5-17.5); IMMATURE GRAN ABSOLUTE AUTO 0.05 K/mm3 (0.00-0.10); IMMATURE GRAN PERCENT AUTO 1 % (0-1); LYMPHOCYTES ABSOLUTE AUTO 1.45 K/mm3 (0.84-5.20); LYMPHOCYTES PERCENT AUTO 19 % (21-46); MONOCYTES ABSOLUTE AUTO 0.99 K/mm3 (0.16-1.47); MONOCYTES PERCENT AUTO 13 % (4-13); Mean Corpuscular HGB 30.3 pg (26.0-34.0); Mean Corpuscular HGB Conc 32.4 g/dL (31.5-36.5); Mean Corpuscular Volume 94 fL (80-100); Mean Platelet Volume 10.2 fL (9.1-12.4); NEUTROPHILS ABSOLUTE AUTO 5.04 K/mm3 (1.96-9.15); NEUTROPHILS PERCENT AUTO 65 % (41-73); Platelet Count 214 K/mm3 (150-400); RDW Standard Deviation 44.3 fL (35.1-46.3); Red Blood Cell Count 4.89 M/mm3 (4.30-5.90); White Blood Cell Count 7.79 K/mm3 (4.00-11.30)
[2019-09-11 03:01] LABS: Alanine Aminotransfer (ALT/SGP 20 U/L (12-78); Albumin, Blood 3.6 g/dL (3.4-5.0); Albumin/Globulin Ratio 1.2 (0.8-1.8); Alk Phos 91 U/L (50-136); Anion Gap 4 mmol/L (6-16); Aspartate Aminotrans (AST/SGOT 16 U/L (12-37); Bilirubin, Total 0.4 mg/dL (0.1-1.0); Blood Urea Nitrogen 20 mg/dL (8-24); Bun/Creatinine Ratio 25.1 (12.0-20.0); CO2, Blood 31 mmol/L (21-32); Chloride, Blood 106 mmol/L (98-108); Globulin, Blood 2.9 g/dL (2.2-4.0); Glomerular Filtration Rate >60 (60-); Glucose, Blood 98 mg/dL (70-99); Sodium, Blood 141 mmol/L (136-145); Total Protein, Blood 6.5 g/dL (6.4-8.2)
[2019-09-11] MEDS ORDERED: CEPH500 PO (04:09)
== END 2019-09-11 05:56 | disposition home or self-care (01) ==
LOC: ER 00:37
PROVIDERS: Emergency Medicine
DX: N39.0 Urinary tract infection, site not specified (principal); R31.9 Hematuria, unspecified; G35 Multiple sclerosis; N40.0 Benign prostatic hyperplasia without lower urinary tract symptoms; Z79.899 Other long term (current) drug therapy; Z79.01 Long term (current) use of anticoagulants
CPT/HCPCS: 36415; 80053; 81001; 85025; 87077; 87086; 87186; 99283

== ENCOUNTER 2020-01-22 06:20 | Emergency (ER) | payer MEDICARE, OTHER ==
[~2020-01-22] VITALS: Ht 188 cm; Wt 70.3 kg
[~2020-01-22 06:20] MED LIST changes: +CEPH500 PO; +GLATIRAMER40 MG/1 ML SC; +MULTI-VITAMIN1 EAC2 PO; +SENNA LAXATIVE8.6 MG PO; +TUMS500 MG PO; +Tylenol325 MG PO; +VALIUM5 MG PO; +ZOCOR20 MG PO
== END 2020-01-22 09:57 | disposition home or self-care (01) ==
LOC: ER 06:20
DX: R04.0 Epistaxis (principal); Z79.01 Long term (current) use of anticoagulants; Z79.899 Other long term (current) drug therapy
CPT/HCPCS: 99283

== ENCOUNTER 2020-06-06 15:40 | Emergency (ER) | payer MEDICARE, OTHER ==
[~2020-06-06] VITALS: Ht 188 cm; Wt 79.4 kg
[2020-06-06 16:03] LABS: Source, Urine Voided
[2020-06-06 16:11] LABS: Appearance, Urine Turbid (Clear); Bilirubin, Urine Neg (Neg); Blood, Urine 5+ (Neg); Color, Urine Yellow (P-Yellow); Glucose Qualitative, Urine Neg (Neg); Ketones, Urine 1+ (Neg); Leukocyte Esterase, Urine 3+ (Neg); Nitrite, Urine Pos (Neg); Protein, Urine 3+ (Neg); Specific Gravity, Urine 1.025 (1.003-1.022); Urobilinogen, Urine 1+ (Normal)
[2020-06-06] MEDS ORDERED: ZOCOR20 MG PO (16:11)
[2020-06-06] MEDS ORDERED: TUMS500 MG PO (16:11)
[2020-06-06] MEDS ORDERED: COPAXONE40 MG/1 ML SC (16:11)
[2020-06-06] MEDS ORDERED: SENNA LAXATIVE8.6 MG PO (16:11)
[2020-06-06] MEDS ORDERED: Hair, Skin & N1 EACH PO (16:11)
[2020-06-06] MEDS ORDERED: XARELTO20 MG PO (16:12)
[2020-06-06] MEDS ORDERED: DIAZ5 PO (16:12)
[2020-06-06] MEDS ORDERED: Ventolin/Prove6.7 GM (16:12)
[2020-06-06 16:15] LABS: BASOPHILS ABSOLUTE AUTO 0.06 K/mm3 (0.00-0.23); BASOPHILS PERCENT AUTO 1 % (0-2); EOSINOPHILS ABSOLUTE AUTO 0.08 K/mm3 (0.00-0.68); EOSINOPHILS PERCENT AUTO 1 % (0-6); Hematocrit 46.4 % (37.0-53.0); Hemoglobin 15.4 g/dL (13.5-17.5); IMMATURE GRAN ABSOLUTE AUTO 0.07 K/mm3 (0.00-0.10); IMMATURE GRAN PERCENT AUTO 1 % (0-1); LYMPHOCYTES ABSOLUTE AUTO 1.36 K/mm3 (0.84-5.20); LYMPHOCYTES PERCENT AUTO 10 % (21-46); MONOCYTES ABSOLUTE AUTO 1.37 K/mm3 (0.16-1.47); MONOCYTES PERCENT AUTO 10 % (4-13); Mean Corpuscular HGB 30.7 pg (26.0-34.0); Mean Corpuscular HGB Conc 33.2 g/dL (31.5-36.5); Mean Corpuscular Volume 93 fL (80-100); Mean Platelet Volume 10.2 fL (9.1-12.4); NEUTROPHILS ABSOLUTE AUTO 10.37 K/mm3 (1.96-9.15); NEUTROPHILS PERCENT AUTO 78 % (41-73); Platelet Count 221 K/mm3 (150-400); RDW Standard Deviation 43.7 fL (35.1-46.3); Red Blood Cell Count 5.01 M/mm3 (4.30-5.90); White Blood Cell Count 13.31 K/mm3 (4.00-11.30)
[2020-06-06 16:37] LABS: Alanine Aminotransfer (ALT/SGP 33 U/L (12-78); Albumin, Blood 3.3 g/dL (3.4-5.0); Alk Phos 114 U/L (50-136); Anion Gap 4 mmol/L (6-16); Aspartate Aminotrans (AST/SGOT 18 U/L (12-37); Bilirubin, Total 0.8 mg/dL (0.1-1.0); Blood Urea Nitrogen 17 mg/dL (8-24); CO2, Blood 29 mmol/L (21-32); Calcium, Blood 8.4 mg/dL (8.5-10.1); Chloride, Blood 105 mmol/L (98-108); Creatinine, Blood 0.77 mg/dL (0.60-1.20); Globulin, Blood 3.4 g/dL (2.2-4.0); Glomerular Filtration Rate >60 (60-); Glucose, Blood 107 mg/dL (70-99); Potassium, Blood 4.1 mmol/L (3.5-5.5); Sodium, Blood 138 mmol/L (136-145); Total Protein, Blood 6.7 g/dL (6.4-8.2)
[2020-06-06 16:43] LABS: Bacteria Many /hpf; Squamous Epithelial Cells Rare /hpf (Few); White Blood Cells, Urine TNTC /hpf (0-5)
[2020-06-06] MEDS ORDERED: CEPHALEXIN500 M1 PO (17:00)
== END 2020-06-06 18:25 | disposition home or self-care (01) ==
LOC: ER 15:40
PROVIDERS: Emergency Medicine
DX: N39.0 Urinary tract infection, site not specified (principal); Z79.01 Long term (current) use of anticoagulants; Z79.899 Other long term (current) drug therapy
CPT/HCPCS: 36415; 80053; 81001; 85025; 87077; 87086; 87186; 96365; 99283-25; J0696

== ENCOUNTER 2020-06-19 10:23 | Emergency (ER) | payer MEDICARE, OTHER ==
[~2020-06-19] VITALS: Ht 188 cm; Wt 65.8 kg
[~2020-06-19 10:23] MED LIST changes: +CEPHALEXIN500 M1 PO; +Hair, Skin & N1 EACH PO; +Ventolin/Prove6.7 GM; +XARELTO20 MG PO
[2020-06-19 11:04] LABS: Source, Urine Clean Catch
[2020-06-19 11:12] LABS: Appearance, Urine Turbid (Clear); Bilirubin, Urine Neg (Neg); Blood, Urine 5+ (Neg); Color, Urine Yellow (P-Yellow); Glucose Qualitative, Urine Neg (Neg); Ketones, Urine Neg (Neg); Leukocyte Esterase, Urine 3+ (Neg); Nitrite, Urine Pos (Neg); Protein, Urine 4+ (Neg); Specific Gravity, Urine 1.015 (1.003-1.022); Urobilinogen, Urine NORM (Normal)
[2020-06-19 11:56] LABS: Red Blood Cells, Urine 50-100 /hpf (0-2); White Blood Cells, Urine TNTC /hpf (0-5)
[2020-06-19 11:57] LABS: Bacteria Many /hpf; Squamous Epithelial Cells Not Seen /hpf (Few)
[2020-06-19] MEDS ORDERED: Cipro500 MG PO (13:18)
== END 2020-06-19 13:50 | disposition home or self-care (01) ==
LOC: ER 10:23
PROVIDERS: Physician Assistant
DX: N39.0 Urinary tract infection, site not specified (principal); Z79.899 Other long term (current) drug therapy; Z79.01 Long term (current) use of anticoagulants
CPT/HCPCS: 81001; 87077; 87086; 87186; 99283; A9270